=== PATIENT | female | born 1950 | race Caucasian/White ===

== ENCOUNTER 2019-09-10 05:53 | Outpatient (RCR) | payer MEDICARE, MEDICAID, SELFPAY | END 2019-10-07 00:01 | LOC: ONCMED 05:53 | PROVIDERS: Family Provider Physician Assistant; Visit Provider Internal Medicine Medical Oncology | DX: D45 Polycythemia vera (principal); R11.2 Nausea with vomiting, unspecified; R19.7 Diarrhea, unspecified; R51 Headache; J44.1 Chronic obstructive pulmonary disease with (acute) exacerbation; G47.33 Obstructive sleep apnea (adult) (pediatric); I11.0 Hypertensive heart disease with heart failure; E78.5 Hyperlipidemia, unspecified; E11.9 Type 2 diabetes mellitus without complications; M19.90 Unspecified osteoarthritis, unspecified site; F17.210 Nicotine dependence, cigarettes, uncomplicated | CPT/HCPCS: 87804 ×2; 96361; 96365; 99214; J7040 ==

== ENCOUNTER 2019-10-28 08:53 | Outpatient (CLI) | payer MEDICARE, MEDICAID, SELFPAY ==
--- NOTE | 2019-10-28 09:17 | CT_ITS ---
WS: [id number] CT ABDOMEN AND PELVIS NONCONTRAST HISTORY: RLQ PAIN TECHNIQUE: Imaging performed through the abdomen and pelvis. Coronal and sagittal reformats are submi tted. All CT scans at [facility] use at least one of these dose optimization techniques: automated exposure control; mA and/or kV adjustment per patient size (includes targeted exams where d ose is matched to clinical indication); or iterative reconstruction. DLP: 1072.98 mGycm COMPARISON: None available. Lower thorax: Subsegmental atelectasis at the lung bases. No mass or pneumonia. Heart size is normal. Moderate pericardial fat. Small hiatal hernia. Liver: Mild hepatic steatosis. No mass or bile duct dilatation. Gallbladder: Prior cholecystectomy. Pancreas: Normal. Spleen: Normal. Adrenal glands: Normal. Right kidney: Normal size with no stones, masses or atrophy. Left kidney: Normal size with no stones, mass or atrophy. Moderate atherosclerosis aorta. No aneurysm. No periaortic hematoma. No free fluid, intraperitoneal air or significant lymphadenopathy. GI tract: The appendix is normal. Mild tortuosity of the colon and fecal retention. No obstruction or soft tissue mass. There are a few scattered diverticula in the distal colon without acute diverticul itis. Abdominal wall: Intact. Pelvis: Prior hysterectomy. Minimally distended urinary bladder. No free fluid or adenopathy in the p yamile. Calcifications in the LEFT pelvis are dystrophic and benign in appearance and may be related t o prior surgery. No adjacent inflammation. Osseous structures: L5 anterolisthesis by 9.9 mm. Bilateral pars defects at L5. LEFT convex curvature lumbar spine. CT/CT abdomen pelvis wo con [id number] IMPRESSION: 1. No renal obstruction or appendicitis. 2. Prior cholecystectomy and hysterectomy. 3. Mild hepatic steatosis. 4. No RIGHT lower quadrant abnormality identified. 5. Moderate atherosclerosis abdominal aorta. 6. Grade 1 spondylolisthesis and spondylolysis L5.
== END 2019-10-28 08:54 | disposition home or self-care (01) ==
LOC: RADWPI 09:01
PROVIDERS: Family Provider Physician Assistant; PCP Physician Assistant; Visit Provider Physician Assistant
DX: I70.0 Atherosclerosis of aorta (principal); K76.0 Fatty (change of) liver, not elsewhere classified; R10.31 Right lower quadrant pain; M47.896 Other spondylosis, lumbar region; Z90.710 Acquired absence of both cervix and uterus
CPT/HCPCS: 74176

== ENCOUNTER 2020-03-30 11:23 | Outpatient (CLI) | payer MEDICARE, MEDICAID, SELFPAY ==
[2020-03-30 15:19] LABS: Alanine Aminotransferase 7 U/L (0-33); Albumin Level 3.8 g/dL (3.5-5.2); Alkaline Phosphatase 88 IU/L (35-105); Anion Gap 17.7 (5-19); Aspartate Amino Transferase 12 U/L (0-32); Blood Urea Nitrogen 20 mg/dL (8-23); Calcium 9.5 mg/dL (8.5-10.5); Carbon Dioxide 26 mmol/L (22-29); Chloride 99 mmol/L (98-107); Globulin 2.5 g/dL (1.3-4.6); Glomerular Filtration Rate 55.1 mL/min (90-130); Glucose 106 mg/dL (65-115); Lactate Dehydrogenase 190 U/L (135-214); Osmolality Calculated 285 mOsm/kg (285-295); Potassium 3.7 mmol/L (3.5-5.1); Sodium 139 mmol/L (136-145); Total Bilirubin 0.2 mg/dL (0.15-1.2); Total Protein 6.3 g/dL (6.6-8.7)
[2020-03-30 15:38] LABS: Basophils # 0.1 10^3/uL (0.0-0.1); Basophils % 0.7 %; Eosinophils # 0.1 10^3/uL (0.0-0.8); Hematocrit 44.1 % (37.0-47.0); Hemoglobin 13.6 g/dL (11.5-15.3); Lymphocytes # 3.1 10^3/uL (0.8-4.8); Lymphocytes % 31.9 %; Mean Corpuscular HGB Conc 30.8 g/dL (30.0-36.0); Mean Corpuscular Hemoglobin 26.8 pg (28.0-34.0); Mean Platelet Volume 10.5 fL (7.4-10.4); Monocytes # 0.6 10^3/uL (0.2-0.9); Monocytes % 6.3 %; Neutrophils # 5.7 10^3/uL (1.8-7.7); Neutrophils % 59.4 %; Nucleated Red Blood Cells % 0 %; Platelet Count 249 10^3/cmm (130-400); Red Blood Count 5.07 10^6/uL (4.1-5.3); Red Cell Distribution Width 16.8 % (12.1-15.1); White Blood Count 9.7 10^3/uL (4.0-10.0)
== END 2020-03-30 11:24 | disposition home or self-care (01) ==
PROVIDERS: PCP Physician Assistant; Visit Provider Internal Medicine Medical Oncology
DX: D45 Polycythemia vera (principal); E11.9 Type 2 diabetes mellitus without complications; E78.5 Hyperlipidemia, unspecified; G47.33 Obstructive sleep apnea (adult) (pediatric); I10 Essential (primary) hypertension; J44.9 Chronic obstructive pulmonary disease, unspecified; M81.0 Age-related osteoporosis without current pathological fracture
CPT/HCPCS: 36415; 80053; 83615; 85025

== ENCOUNTER 2020-03-31 13:54 | Outpatient (CLI) | payer MEDICARE, MEDICAID, SELFPAY ==
--- NOTE | 2020-04-01 11:24 | ONC FU_ITS ---
Dr. Capellan Patient Follow-Up Note Patient: Humaira Early Unit #: [id number]: 1950 Dicatated By: Star Capellan M.D.Date of Visit:Mar 31, 2020 Onc Med Follow-up/Prog Note Chief Complaint: Polycythemia. History of Present Illness: This is a 69 year-old woman with polycythemia rubra vera. She had been seen by Dr. Hamilton in October 2014 and her laboratory studies at that time showed significantly elevated hemoglobin/hematocrit levels at 17.0 g and 50.9% respectively. The white blood cell count was borderline high at 10,200. The platelet count was normal at 255,000. B12 level was normal at 741 pg/mL. 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 I had seen her initially in November 2014, and at that point I did have her start phlebotomies. In May 2017 I had her start hydroxyurea, as she was still requiring phlebotomy on a frequent basis. As of her followup visit on 04/17/2018 she appeared stable clinically and her blood counts were in normal range. She continued hydroxyurea at 500 mg bid. On 05/13/2018 she was admitted to the hospital with acute renal failure in association with COPD exacerbation/pneumonia. She improved with IV fluids, antibiotics, and steroid therapy. As a precaution, I did opt to stop her hydroxyurea. During subsequent follow-up, her renal function improved and her blood counts remained adequately controlled. She has multiple medical illnesses including hypertension, hyperlipidemia, type 2 diabetes, asthma/COPD, obstructive sleep apnea, and pretty severe arthritis in her knees. She does have a history of smoking a pack of cigarettes daily for 45 years. She has cut down. INTERIM HISTORY: She is seen for a followup visit. She has been feeling a little better generally, she has now been started on home oxygen, which she uses continuously. With that her breathing has been better, she has been sleeping better, and she has had significant improvement in her swelling. She still has limited activity, but she is able to walk around and do a few very light chores. ECOG score is 2. She has good appetite. She has no fever or night sweats. She still has a smoker's cough, and she is smoking 1/2 pack of cigarettes daily. She does not have chest pain. She has no GI or complaints. She has pain in her left knee, she also has pain in her right leg, from the ankle to the knee. She gets dizzy if she does not take meclizine. She has no focal neurologic symptoms. Medications: Biotene Dry Mouth Moisturizing Solution Mouth/throat PRN, Gabapentin 2 (400 mg) Tablet Oral t.i.d., Losartan Potassium 1 (50 mg) Tablet Oral daily, Lovastatin 1 (40 mg) Tablet Oral daily, Meclizine HCl 1 (25 mg) Tablet Oral t.i.d., metFORMIN HCl ER 1 Tablet (of 500 mg) Tablet SR 24 HR Oral b.i.d., Metoprolol Succinate ER 1 Tablet (of 100 mg) Tablet SR 24 HR Oral daily, Pioglitazone HCl 1 (15 mg) Tablet Oral daily, Trulicity 1 Subcutaneous q 7 days Allergies: contrast dye Review of Systems: Constitutional - She has limited activity, but she is able to walk around and do a few very light chores. Appetite is good and weight is stable. No fever, night sweats, or hot flashes. ECOG score is 2, ENMT - No sinus congestion/drainage. No mouth sores. No sore throat or difficulty swallowing, Hematologic/Lymphatic - No abnormal bruising or bleeding, Respiratory - She has shortness of breath. She is now on continuous oxygen. She has smoker's cough. No pleuritic pain or hemoptysis. She is still smoking 1/2 pack of cigarettes daily, Cardiovascular - No angina pain. No palpitations, Gastrointestinal - No nausea or vomiting. No heartburn or acid reflux. No diarrhea or constipation. No blood in the stool or black stools, Genitourinary (F) - No dysuria or hematuria. No urinary frequency. No urgency or incontinence, Musculoskeletal - She has pain in her left knee and she has pain in her right leg, from the ankle to the knee, Integumentary - No skin rash, Neurologic - No headache. She has dizziness if she doesn't take meclizine. No numbness or tingling. No other focal neurologic symptoms, Psychiatric - No anxiety or depression. She has been sleeping better with the oxygen. Vital Signs: Performed on Mar 31, 2020 14:11 Height - 64.00 in Weight - 280.4 lbs (HIGH) BSA - 2.26 sq.m BMI - 48.13 (HIGH) Temperature - 97.1 F (LOW) Pulse - 77 /min Respiration - 24 /min BP - 106/41 mm(hg) O2 Sat - 95 % (LOW) Pain - 0 Physical Examination: Constitutional - She appears generally weak and chronically ill, Eyes - Sclerae nonicteric. Conjunctivae clear, ENMT - Mouth is dry. There are no lesions noted in the oral cavity, Hematologic/Lymphatic - No cervical, clavicular, or axillary adenopathy, Respiratory - Lungs sound clear with diminished air movement bilaterally, Cardiovascular - Heart tones are distant. The rhythm is regular. There is no murmur, gallop, or rub noted, Abdomen - Distended. Liver and spleen are not enlarged. There is no abdominal mass or ascites noted and there is no inguinal adenopathy, Extremities - No edema, Neurologic - No focal neurologic deficits noted. Lab/Imaging: CBC shows hemoglobin 13.6 g with hematocrit 44.1%, white blood cell count 9700, and platelet count 249,000. Comprehensive metabolic profile shows stable renal function with BUN 20 and creatinine 1.0 mg/dL. Bilirubin and liver enzymes are normal. Impression: 1. Patient had presented with elevated hemoglobin/hematocrit levels. She had a low erythropoietin level and a positive JAK2 gene mutation study, consistent with polycythemia rubra vera. 2. She has underlying asthma/COPD and obstructive sleep apnea, and she also may have a component of secondary polycythemia. 3. Her blood count have come down with phlebotomies. Her other medical illnesses include: 4. Hypertension. 5. Hyperlipidemia. 6. Type II diabetes. 7. Degenerative arthritis. 8. She has nicotine dependence (cigarettes). Her blood counts initially had been adequately controlled with phlebotomy. However, her subsequent hemoglobin/hematocrit levels had remained consistently elevated despite having phlebotomies regularly. In May 2017 she started with hydroxyurea at 500 mg twice a day. Her blood counts had been well controlled on that dosage. In May 2018 she was admitted to the hospital with an episode of acute renal failure in association with COPD exacerbation/pneumonia. She recovered uneventfully, but I did opt to stop her hydroxyurea. Thus far during follow-up her blood counts have remained adequately controlled off hydroxyurea. She likely does have some component of secondary polycythemia, she has continued to smoke. Her clinical status, though, has improved significantly since she started on home oxygen. Plan: As long as her blood counts are adequately controlled, she will continue on observation/expectant management. I will see her again in 6 months, or sooner as needed. Signed By: Star Capellan M.D. <<Signature on File>>
== END 2020-03-31 13:55 | disposition home or self-care (01) ==
PROVIDERS: PCP Physician Assistant; Visit Provider Internal Medicine Medical Oncology
DX: D45 Polycythemia vera (principal); J44.9 Chronic obstructive pulmonary disease, unspecified; G47.33 Obstructive sleep apnea (adult) (pediatric); I10 Essential (primary) hypertension; E78.5 Hyperlipidemia, unspecified; E11.9 Type 2 diabetes mellitus without complications; M19.90 Unspecified osteoarthritis, unspecified site; F17.210 Nicotine dependence, cigarettes, uncomplicated; Z99.81 Dependence on supplemental oxygen
CPT/HCPCS: 99214

== ENCOUNTER 2020-04-16 10:54 | Outpatient (CLI) | payer MEDICARE, MEDICAID, SELFPAY ==
--- NOTE | 2020-04-16 14:11 | PFTS_ITS ---
Date of Study:04/16/20 Date of Dictation: MECHANICS: Forced vital capacity (FVC) is reduced. Forced expiratory volume in one second (FEV1) is reduced. FEV1/FVC is reduced. FLOW VOLUME LOOP: Reduced flow at all lung volumes with significant scooping. LUNG VOLUMES: Not measured DIFFUSING CAPACITY FOR CARBON MONOXIDE: Mildly reduced INTERPRETATION: The pulmonary function tests are consistent with severe obstruction. A component of restriction cannot be ruled out in the absence of lung volumes. There is significant postbronchodilator response. Lung volumes were not measured. Gas exchange (DLCO) is mildly reduced. MTDD
== END 2020-04-16 10:55 | disposition home or self-care (01) ==
LOC: RT 10:58
PROVIDERS: PCP Physician Assistant; Visit Provider Physician Assistant
DX: J44.9 Chronic obstructive pulmonary disease, unspecified (principal)
CPT/HCPCS: 94060; 94729; J7611

== ENCOUNTER → 2020-05-18 15:48 | Outpatient (BNVA) | payer MEDICARE, MEDICAID, SELFPAY | PROVIDERS: PCP Physician Assistant; Visit Provider Obstetrics & Gynecology | DX: N90.89 Other specified noninflammatory disorders of vulva and perineum (principal) | CPT/HCPCS: 88305 ==

== ENCOUNTER 2020-05-25 14:38 | Outpatient (CLI) | payer MEDICARE, MEDICAID, SELFPAY ==
--- NOTE | 2020-05-25 14:45 | MM_ITS ---
WS: [id number] BILATERAL SCREENING DIGITAL MAMMOGRAM WITH CAD HISTORY: SCREENING COMPARISON: 03/19/2018 Bilateral CC and MLO views submitted. Computer aided detection analyzed. Breast composition: There are scattered areas of fibroglandular density. No suspicious masses, microc alcifications or architectural distortion. Stable asymmetries and calcifications. MM/[place] [id number] IMPRESSION: BI-RADS: 2-Benign FOLLOW UP: 1 Year Follow-up
--- NOTE | 2020-05-25 15:50 | XR_ITS ---
WS: [id number] SCREENING DEXA SCAN [facility] CLINICAL INFORMATION: POSTMENOPAUSAL COMPARISON: FINDINGS: The L1-L4 bone mineral density measures 0.983 g/cm2. This corresponds to a T score score of -1.6 and Z score of -1.2. Left femoral neck bone mineral density measures 0.693 g/cm2. This corresponds to a T score of -2.5 an d Z score of -2.0. Right femoral neck bone mineral density measures 0.795 g/cm2. This corresponds to a T score -1.7of an d Z score of -1.1. Mean femoral neck bone mineral density measures 0.744 g/cm2. This corresponds to a T score of -2.1 an d Z score of -1.5. XR/XR DEXA axial skeleton* [id number] IMPRESSION: Osteopenia lumbar spine. Osteoporosis femoral necks. Patient's FRAX calculated 10 year probability for major osteoporotic fracture i s 27.5 % and osteoporotic hip fracture is 12.7%.
== END 2020-05-25 14:39 | disposition home or self-care (01) ==
LOC: RADSHAW 14:44
PROVIDERS: PCP Physician Assistant; Visit Provider Physician Assistant
DX: Z12.31 Encounter for screening mammogram for malignant neoplasm of breast (principal); Z78.0 Asymptomatic menopausal state; M81.0 Age-related osteoporosis without current pathological fracture
CPT/HCPCS: 77067; 77080

== ENCOUNTER 2020-07-20 10:37 | Outpatient (CLI) | payer MEDICARE, MEDICAID, SELFPAY ==
--- NOTE | 2020-07-20 10:48 | CT_ITS ---
WS: [id number] CT CHEST WITH INTRAVENOUS CONTRAST HISTORY: LUNG NODULE/VULVA CANCER TECHNIQUE: Contiguous 5 mm axial imaging performed on the thorax. Coronal and sagittal reformats are submitted. All CT scans at [facility] use at least one of these dose optimization techniq ues: automated exposure control; mA and/or kV adjustment per patient size (includes targeted exams wh ere dose is matched to clinical indication); or iterative reconstruction. CONTRAST: Visipaque 320; 95 mL IV. DLP: 944.61 mGy.cm COMPARISON: 03/19/2018 Lungs and central airway: Hyperexpanded lungs with changes of emphysema. No pneumonia. Normal vascula ture. No pulmonary nodules. Pleura: Normal. No pleural effusion. Heart and pericardium: Normal size heart. Dense calcification along the mitral annular valve plane. M oderate coronary artery atherosclerosis. No pericardial effusion. Mediastinum and gertrude: Small stable mediastinal and hilar lymph nodes. No adenopathy. Vessels: Mild atherosclerosis aorta. Normal size pulmonary artery. Chest wall and lower neck: No soft tissue masses. Upper abdomen: Prior cholecystectomy. Mild thickening of the RIGHT adrenal gland up to 9 mm is simila r to the prior study with no progression. Visualized liver and spleen are normal. Osseous structures: Healed rib fracture in the anterolateral RIGHT thorax. CT/CT chest w con* [id number] IMPRESSION: 1. Chronic emphysema. No pulmonary nodules or pneumonia. 2. Moderate coronary artery atherosclerosis and mild thoracic aorta atheroscle rosis. 3. Prior cholecystectomy. 4. Stable RIGHT adrenal nodule. 5. No change in the mediastinal and hilar lymph nodes.
[2020-07-20 11:31] LABS: Blood Urea Nitrogen 13 mg/dL (8-23); Glomerular Filtration Rate 71.3 mL/min (90-130)
[2020-07-20] MEDS: iodixanol 320 mg/mL 100mL Btl IV (12:05)
== END 2020-07-20 10:38 | disposition home or self-care (01) ==
LOC: RAD 10:40
PROVIDERS: PCP Physician Assistant; Visit Provider Nurse Practitioner Family
DX: C51.9 Malignant neoplasm of vulva, unspecified (principal); R91.1 Solitary pulmonary nodule; J43.9 Emphysema, unspecified; I25.10 Atherosclerotic heart disease of native coronary artery without angina pectoris; I70.0 Atherosclerosis of aorta; D49.7 Neoplasm of unspecified behavior of endocrine glands and other parts of nervous system
CPT/HCPCS: 36415; 71260; 82565; 84520

== ENCOUNTER 2020-09-08 14:59 | Outpatient (CLI) | payer MEDICARE, MEDICAID, SELFPAY ==
[2020-09-07 09:59] VITALS: BP 120/78; PULSE 96; RESP 18; TEMP 36.7; O2SAT 93
[2020-09-07 10:35] LABS: Calcium 9.6 mg/dL (8.5-10.5); Glomerular Filtration Rate 55.1 mL/min (90-130)
--- NOTE | 2020-09-08 07:18 | SUR.PREOP ---
creatinine clearance is >35 108 per online calculator. calcium within normal limits. patient verified candidate for reclast.
[2020-09-08 15:47] VITALS: BP 102/84; PULSE 75; RESP 18; TEMP 36.1; O2SAT 98; BMI 51.2
== END 2020-09-08 15:00 | disposition home or self-care (01) ==
PROVIDERS: PCP Physician Assistant; Visit Provider Physician Assistant
DX: M81.0 Age-related osteoporosis without current pathological fracture (principal)
CPT/HCPCS: 36415; 82310; 82565; 96365; J3489

== ENCOUNTER 2020-09-13 07:50 | Outpatient (CLI) | payer MEDICARE, MEDICAID, SELFPAY ==
[2020-09-13 08:54] LABS: Basophils # 0.1 10^3/uL (0.0-0.1); Basophils % 0.6 %; Eosinophils # 0.2 10^3/uL (0.0-0.8); Eosinophils % 1.8 %; Hematocrit 43.9 % (37.0-47.0); Hemoglobin 13.6 g/dL (11.5-15.3); Lymphocytes # 2.9 10^3/uL (0.8-4.8); Lymphocytes % 32.5 %; Mean Corpuscular Hemoglobin 27.8 pg (28.0-34.0); Mean Corpuscular Volume 89.6 fL (81-99); Mean Platelet Volume 10.2 fL (7.4-10.4); Monocytes # 0.6 10^3/uL (0.2-0.9); Monocytes % 6.8 %; Neutrophils # 5.17 10^3/uL (1.8-7.7); Neutrophils % 57.7 %; Nucleated Red Blood Cells % 0 %; Platelet Count 262 10^3/cmm (130-400)
[2020-09-13 09:19] LABS: Alanine Aminotransferase 9 U/L (0-33); Albumin Level 3.5 g/dL (3.5-5.2); Alkaline Phosphatase 122 IU/L (35-105); Aspartate Amino Transferase 8 U/L (0-32); Blood Urea Nitrogen 18 mg/dL (8-23); Calcium 8.8 mg/dL (8.5-10.5); Carbon Dioxide 26 mmol/L (22-29); Chloride 103 mmol/L (98-107); Globulin 2.9 g/dL (1.3-4.6); Glomerular Filtration Rate 62.3 mL/min (90-130); Glucose 137 mg/dL (65-115); Lactate Dehydrogenase 148 U/L (135-214); Osmolality Calculated 290 mOsm/kg (285-295); Sodium 138 mmol/L (136-145); Total Bilirubin 0.2 mg/dL (0.15-1.2); Total Protein 6.4 g/dL (6.6-8.7)
== END 2020-09-13 07:51 | disposition home or self-care (01) ==
LOC: ONCMED 15:31
PROVIDERS: PCP Physician Assistant; Visit Provider Internal Medicine Medical Oncology
DX: D45 Polycythemia vera (principal)
CPT/HCPCS: 80053; 83615; 85025

== ENCOUNTER 2020-09-14 08:18 | Outpatient (CLI) | payer MEDICARE, MEDICAID, SELFPAY ==
--- NOTE | 2020-09-17 15:08 | ONC FU_ITS ---
Dr. Capellan Patient Follow-Up Note Patient: Humaira Early Unit #: [id number]: 1950 Dicatated By: Star Capellan M.D.Date of Visit:Sep 14, 2020 Telehealth Progress Note The patient has been informed that the visit may not be secure and acknowledged the information. I have explained the option of participating in a telephone or video visit during the [facility] to the patient. After being given an opportunity to ask questions about and discuss this type of visit, the patient verbally consented to proceeding with the telephone/video visit. the patient understands that this service replaces an office visit and they may be billed and /or responsible for any applicable copayments Chief Complaint: Polycythemia. History of Present Illness: This is a 69 year-old woman with polycythemia rubra vera. She had been seen by Dr. Hamilton in October 2014 and her laboratory studies at that time showed significantly elevated hemoglobin/hematocrit levels at 17.0 g and 50.9% respectively. The white blood cell count was borderline high at 10,200. The platelet count was normal at 255,000. B12 level was normal at 741 pg/mL. 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 I had seen her initially in November 2014, and at that point I did have her start phlebotomies. In May 2017 I had her start hydroxyurea, as she was still requiring phlebotomy on a frequent basis. As of her followup visit on 04/17/2018 she appeared stable clinically and her blood counts were in normal range. She continued hydroxyurea at 500 mg bid. On 05/13/2018 she was admitted to the hospital with acute renal failure in association with COPD exacerbation/pneumonia. She improved with IV fluids, antibiotics, and steroid therapy. As a precaution, I did opt to stop her hydroxyurea. During subsequent follow-up, her renal function improved and her blood counts remained adequately controlled. She has multiple medical illnesses including hypertension, hyperlipidemia, type 2 diabetes, asthma/COPD, obstructive sleep apnea, and pretty severe arthritis in her knees. She does have a history of smoking a pack of cigarettes daily for 45 years. She has cut down. INTERIM HISTORY: She is seen for a followup visit by Telehealth. She still has very limited activity, but she is up and around at home. ECOG score is 2. She has good appetite. She has not had fever. She says she has always had sweating at night. In August she had a skin cancer removed from her thigh. She has shortness of breath, and she is on continuous oxygen. She has just occasional cough. She does not complain of chest pain. She has no GI/ complaints other than occasional acid reflux. She does have a lot of joint pain, especially the knees and the left shoulder and arm. She occasionally has headache. She takes meclizine for dizziness. She has no focal neurologic symptoms. Medications: Biotene Dry Mouth Moisturizing Solution Mouth/throat PRN, Gabapentin 2 (400 mg) Tablet Oral t.i.d., Losartan Potassium 1 (50 mg) Tablet Oral daily, Lovastatin 1 (40 mg) Tablet Oral daily, Meclizine HCl 1 (25 mg) Tablet Oral t.i.d., metFORMIN HCl ER 1 Tablet (of 500 mg) Tablet SR 24 HR Oral b.i.d., Metoprolol Succinate ER 1 Tablet (of 100 mg) Tablet SR 24 HR Oral daily, Pioglitazone HCl 1 (15 mg) Tablet Oral daily, Trulicity 1 Subcutaneous q 7 days Allergies: contrast dye Review of Systems: Constitutional - She has very limited activity, but she has up and around at home. Her appetite is good. She has not had fever. She has sweating at night, but that she has always had. ECOG score is 2, ENMT - No sinus congestion/drainage. No mouth sores. No sore throat or difficulty swallowing, Hematologic/Lymphatic - She has easy bruising, Respiratory - She has shortness of breath. She is on continuous oxygen. She has just occasional cough. No pleuritic pain or hemoptysis, Cardiovascular - No angina pain. No palpitations, Gastrointestinal - No nausea or vomiting. She has occasional acid reflux. No diarrhea or constipation. No blood in the stool or black stools, Genitourinary (F) - No dysuria or hematuria. No urinary frequency. No urgency or incontinence, Musculoskeletal - She has a lot of joint pain, particularly in the knees and in the left shoulder and arm, Integumentary - In August she had a skin cancer removed from her thigh, Neurologic - She occasionally has headache. She takes meclizine for dizziness. No numbness or tingling. No other focal neurologic symptoms, Psychiatric - No anxiety or depression. She does not sleep well at night. Physical Examination: Constitutional - She appears generally weak, but not acutely ill. Lab/Imaging: CBC shows hemoglobin 13.6 g with hematocrit 43.9%. The white blood cell count is 9000 and the platelet count is 262,000. Comprehensive metabolic profile is unremarkable except for slightly elevated alkaline phosphatase at 122/105 IU/L. Impression: 1. Patient had presented with elevated hemoglobin/hematocrit levels. She had a low erythropoietin level and a positive JAK2 gene mutation study, consistent with polycythemia rubra vera. 2. She has underlying asthma/COPD and obstructive sleep apnea, and she also may have a component of secondary polycythemia. 3. Her blood count have come down with phlebotomies. Her other medical illnesses include: 4. Hypertension. 5. Hyperlipidemia. 6. Type II diabetes. 7. Degenerative arthritis. 8. She has nicotine dependence (cigarettes). Her blood counts initially had been adequately controlled with phlebotomy. However, her subsequent hemoglobin/hematocrit levels had remained consistently elevated despite having phlebotomies regularly. In May 2017 she started with hydroxyurea at 500 mg twice a day. Her blood counts had been well controlled on that dosage. In May 2018 she was admitted to the hospital with an episode of acute renal failure in association with COPD exacerbation/pneumonia. She recovered uneventfully, but I did opt to stop her hydroxyurea. Thus far during follow-up her blood counts have remained adequately controlled off hydroxyurea. Her hematocrit is slightly above target range, but I feel that it is acceptable as she likely does have some component of secondary polycythemia, and she has continued to smoke. Overall, her clinical status appears stable. Plan: She continues observation/expectant management. Her blood count will be rechecked in 3 months. I will see her again in 6 months. Signed By: Star Capellan M.D. <<Signature on File>>
== END 2020-09-14 08:19 | disposition home or self-care (01) ==
LOC: ONCMED 08:19
PROVIDERS: PCP Physician Assistant; Visit Provider Internal Medicine Medical Oncology
DX: D45 Polycythemia vera (principal); J44.9 Chronic obstructive pulmonary disease, unspecified; G47.33 Obstructive sleep apnea (adult) (pediatric); I10 Essential (primary) hypertension; E78.5 Hyperlipidemia, unspecified; E11.9 Type 2 diabetes mellitus without complications; M19.90 Unspecified osteoarthritis, unspecified site; F17.210 Nicotine dependence, cigarettes, uncomplicated

== ENCOUNTER 2020-09-21 12:16 | Emergency (ER) | payer MEDICARE, MEDICAID, SELFPAY ==
[2020-09-21 12:30] VITALS: PULSE 88; RESP 18; TEMP 35.9; O2SAT 98; BMI 49.6
--- NOTE | 2020-09-21 12:52 | W.ED.GENADLT ---
HPI - General Adult General: Chief complaint: General Medical Stated complaint: phy ref/poss clots in legs Time Seen by Provider: 09/21/20 12:45 History of Present Illness: HPI narrative: 61-year-old female presents emergency room with complaint of swelling and discomfort bilateral in her lower extremities and redness she says it has been there for the last 5 months. She said the redness is moving up more proximally up her leg she is not had any fever sweats or chills she is chronically on oxygen a 4 lpm by [place]. She denies any chest pain or shortness of breath no nausea vomiting or diarrhea. Interestingly in the room on room air her oxygen saturations were 96-97% Onset (ago): month(s) (4) Location: lower extremity Radiation: non-radiation Severity: moderate Quality: burning Pain Consistency: intermittent Relieving factors: none Associated symptoms: Deny chest pain, confusion, cough, diaphoresis, decreased appetite, dyspnea, fevers/chills, headache(s), malaise, nausea, rash, palpitations, seizures, short of breath, syncope, vomiting or weakness Treatments prior to arrival: none Review of Systems Const: Denies: malaise or diaphoresis ENMT: Denies: throat pain, ear or mastoid pain, nasal discharge or nasal congestion Card: Denies: chest pain, palpitations or syncope Resp: Denies: dyspnea GI: Denies: nausea or vomiting : Denies: flank pain, difficulty voiding, dysuria, urinary frequency or urinary urgency Skin/Breast: Denies: rash Neuro: Denies: headache(s) or confusion [facility] ED PFSH: Medical History (Updated 09/21/20 @ 14:14 by Eduard Martinez DO) Chronic hypertension Diagnosed in 2009 and she is on medication managed by primary care provider. Does not have a counter supply worker. COPD (chronic obstructive pulmonary disease) Asthma/COPD diagnosed in 1999 and is on medication. Managed by PMD. Is scheduled to see senior chemical process engineer Dr. Gaines. Diabetes mellitus Diagnosed in 1999 and controlled on medication managed by PMD. Does not have an autocutter. Does not know what her last hemoglobin A1c is. Hypercholesteremia Diagnosed in 2009 and controlled with medication. No pertinent past medical history Patient denies history of PE/DVT/clotting disorders, liver heart, thyroid. PCP: [facility] Overactive bladder On Vesicare managed by primary care provider. Squamous cell carcinoma of vulva Diagnosed in 2019 with a rapidly growing lesion on left crural fold. Patient underwent radical partial vulvectomy with inguinofemoral sentinel lymphadenectomy on 07/06/[address] Brian moran in [facility]. Surgical History (Updated 07/27/20 @ 09:23 by Enoc Diaz MD) Status post arthroscopic knee surgery 1999---left knee Status post cholecystectomy 2004-laparoscopic procedure Status post hysterectomy 2004-total abdominal hysterectomy with bilateral salpingo-oophorectomy for abnormal uterine bleeding. Open procedure via vertical midline infraumbilical incision. ----> Per patient benign pathology. Status post surgery 07/06/2020---radical partial vulvectomy with inguinofemoral sentinel lymphadenectomy performed by Dr. Brian moran in [facility] for squamous cell carcinoma of the vulva. Pathology showed well-differentiated squamous cell carcinoma. Lymph nodes were negative for malignant neoplasm. Family History Mother Diabetes Hyperlipidemia Hypertension Stroke Grandfather Diabetes maternal Brother Diabetes Sister Breast cancer Diagnosed in her 50s, Lung cancer Denies family history of Colon cancer Ovarian cancer Heart disease Uterine cancer Thyroid condition Social History Smoking and tobacco status: current every day smoker cigarettes Packs smoked per day: 0.5 Years cigarettes smoked: 50 Quit status (tobacco): considering quitting Second hand smoke exposure: No Alcohol intake: never Lives independently: Yes Household members: spouse Marital status: Current occupational status: disabled History of recent travel: No Current gender identity: Female Physical Exam Const: COMMON NORMALS: no acute distress GENERAL APPEARANCE: cooperative and comfortable ORIENTATION/CONSCIOUSNESS: Yes awake, Yes oriented to person, Yes oriented to place and Yes oriented to time HENMT: COMMON NORMALS: normocephalic, atraumatic and hearing grossly normal bilaterally HEAD & SCALP: normocephalic and atraumatic Neck/C-Spine: COMMON NORMALS: no JVD Resp: COMMON NORMALS: normal respiratory effort, No retractions, No use of accessory muscles and clear to auscultation bilaterally AUSCULTATION: clear to auscultation bilaterally Cardio: COMMON NORMALS: no JVD, regular rate, regular rhythm and No murmurs present (Cardio) RATE: regular rate RHYTHM: regular rhythm GI: COMMON NORMALS: Soft to palpation and No hepatosplenomegaly present AUSCULTATION: Yes normoactive bowel sounds PALPATION: Yes Soft to palpation, No Tenderness to palpation present (GI), No Guarding due to palpation present (GI) and Yes No hepatosplenomegaly present Extremity: COMMON NORMALS: normal to inspection, capillary refill normal, no clubbing, cyanosis or edema, no calf tenderness and no pedal edema Neuro: SENSORIUM/ORIENTATION: Yes oriented to person, Yes oriented to place and Yes oriented to time Skin: NARRATIVE SKIN EXAM: Mild induration of the feet no evidence of fissures. Some induration. Course Vital Signs: Vital signs: Vital Signs Temperature 96.7 F L 09/21/20 12:30 Pulse Rate 67 09/21/20 14:24 Respiratory Rate 18 09/21/20 14:24 Blood Pressure 142/53 09/21/20 14:24 Pulse Oximetry 97 09/21/20 14:24 MDM - General Adult MDM Narrative: Medical decision making narrative: Her duplex is negative there is no real sign of infection or cellulitis in the feet today. She does have a mild dermatitis seems to work its way proximally just proximal to the ankles bilaterally. Patient reports it arrington slightly and has some pruritus to it. We will go and have her use triamcinolone 3 times daily, started on itraconazole 200 twice daily for a week and get her set up to see dermatology. Return if has further problems. Lab Data: Labs: Lab Results 09/21/20 09/21/20 Range/Units 13:00 13:00 WBC 9.2 (4.0-10.0) 10^3/ uL RBC 5.18 (4.1-5.3) 10^6/u L Hgb 14.3 (11.5-15.3) g/dL Hct 45.9 (37.0-47.0) % MCV 88.6 (81-99) fL MCH 27.6 L (28.0-34.0) pg MCHC 31.2 (30.0-36.0) g/dL RDW 13.9 (12.1-15.1) % Plt Count 254 (130-400) 10^3/c mm MPV 10.0 (7.4-10.4) fL Neut % (Auto) 59.4 % Lymph % (Auto) 31.1 % [facility] % (Auto) 7.3 % Eos % (Auto) 1.4 % Baso % (Auto) 0.5 % Neut # (Auto) 5.46 (1.8-7.7) 10^3/u L Lymph # (Auto) 2.9 (0.8-4.8) 10^3/u L [facility] # (Auto) 0.7 (0.2-0.9) 10^3/u L Eos # (Auto) 0.1 (0.0-0.8) 10^3/u L Baso # (Auto) 0.1 (0.0-0.1) 10^3/u L Nucleated RBC % (a uto) 0 % Nucleated RBCs # 0.0 /100WBC Sodium 135 L (136-145) mmol/L Potassium 4.0 (3.5-5.1) mmol/L Chloride 99 (98-107) mmol/L Carbon Dioxide 29 (22-29) mmol/L Anion Gap 11.0 (5-19) BUN 13 (8-23) mg/dL Creatinine 0.9 (0.5-0.9) mg/dL GFR Calculation 62.3 L (90-130) mL/min Glucose 100 (65-115) mg/dL Calculated Osmolal ity 280 L (285-295) mOsm/k g Calcium 9.9 (8.5-10.5) mg/dL Total Bilirubin 0.2 (0.15-1.2) mg/dL AST 12 (0-32) U/L ALT 9 (0-33) U/L Alkaline Phosphata se 131 H (35-105) IU/L Total Protein 7.0 (6.6-8.7) g/dL Albumin 3.7 (3.5-5.2) g/dL Globulin 3.3 (1.3-4.6) g/dL Discharge Plan Discharge Patient Disposition: Home Clinical Impression: Chronic dermatitis of feet, Tinea pedis Condition: Stable Prescriptions: New triamcinolone acetonide 0.1 % ointment 1 applic topical TID Qty: 453.6 RF: 0 itraconazole 100 mg capsule 200 mg PO BID 7 Days Qty: 28 RF: 0 Held lovastatin 40 mg tablet 40 mg PO DAILY@0800 RF: 0 Hold Instructions: Resume on 09/29/20. hold while on itraconozole No Action solifenacin [Vesicare] 10 mg tablet 10 mg PO DAILY@0800 RF: 0 meclizine 25 mg tablet 25 mg PO TID@,, RF: 0 albuterol sulfate [ProAir HFA] 90 mcg/actuation HFA aerosol inhaler 2 puff INHALATION Q6H PRN (Reason: short of breath) RF: 0 pioglitazone 15 mg tablet 15 mg PO DAILY@0800 RF: 0 losartan 100 mg tablet 100 mg PO DAILY@0800 RF: 0 furosemide [Lasix] 40 mg tablet 40 mg PO DAILY@0800 RF: 0 Trulicity 0.75 mg/0.5 mL pen injector 0.75 mg SUBCUT Q7D RF: 0 metformin 500 mg tablet extended release 24 hr 1,000 mg PO DAILY@0800 RF: 0 gabapentin 400 mg capsule 400 mg PO TID@,, RF: 0 metoprolol tartrate 50 mg tablet 50 mg PO DAILY@0800 RF: 0 ipratropium-albuterol 0.5 mg-3 mg(2.5 mg base)/3 mL solution for nebulization 3 ml INHALATION Q6H RF: 0 zoledronic amvo-kwoewsxs-cyyfz [Reclast] 5 mg/100 mL piggyback 5 ea IVP .yearly RF: 0 pantoprazole 40 mg tablet,delayed release (DR/EC) 40 mg PO DAILY@0800 RF: 0 Trelegy Ellipta 100-62.5-25 mcg blister with device 1 inh INHALATION DAILY@0800 RF: 0 Eye Vitamin and Minerals 7,160-113-100 [id number] Tablet 1 tab PO DAILY@0800 RF: 0 Vitamin D3 1 tab PO DAILY@0800 RF: 0 Discharge Orders: Discharge ED (Routine); Ordered 09/21/20 Ordered By: Eduard Martinez Referrals: Tierney Kearney PA [Primary Care Provider] - Coding Level of Care Code ED Chief Nursing Officer for Chg Fwd Exam Detailed
--- NOTE | 2020-09-21 12:57 | USCV_ITS ---
Humaira Early Age: 69 Gender: F : 1950 Exam Date: 09/21/2020 13:13 Ordering Phys: Eduard Martinez DO Technologist: Dionne Bahena Exam Location: [facility] [place] Indication: Bilateral leg pain and swelling HISTORY: Lower extremity pain. PROCEDURES: Venous duplex imaging was performed in bilateral lower extremities. The following venous structures were evaluated: common femoral vein, profunda vein, proximal portion of the greater saphenous vein, superficial femoral vein, and the popliteal vein. In addition, the posterior tibial and peroneal trunk were evaluated. FINDINGS: Normal 2-D Doppler and augmentation and compressibility throughout the lower extremity venous structures. Additional imaging through the proximal calf veins also reveals no thrombus. Limited evaluation of the greater saphenous vein is patent with no thrombus. CONCLUSIONS No evidence of right lower extremity DVT. No evidence of left lower extremity DVT. Marquez Seay MD (Electronically Signed) Final Date: 21 September 2020 17:16 S
[2020-09-21 13:08] LABS: Basophils # 0.1 10^3/uL (0.0-0.1); Basophils % 0.5 %; Eosinophils # 0.1 10^3/uL (0.0-0.8); Eosinophils % 1.4 %; Hematocrit 45.9 % (37.0-47.0); Hemoglobin 14.3 g/dL (11.5-15.3); Lymphocytes # 2.9 10^3/uL (0.8-4.8); Lymphocytes % 31.1 %; Mean Corpuscular HGB Conc 31.2 g/dL (30.0-36.0); Mean Corpuscular Hemoglobin 27.6 pg (28.0-34.0); Mean Corpuscular Volume 88.6 fL (81-99); Monocytes # 0.7 10^3/uL (0.2-0.9); Monocytes % 7.3 %; Neutrophils # 5.46 10^3/uL (1.8-7.7); Neutrophils % 59.4 %; Nucleated Red Blood Cells % 0 %; Platelet Count 254 10^3/cmm (130-400); Red Blood Count 5.18 10^6/uL (4.1-5.3); Red Cell Distribution Width 13.9 % (12.1-15.1); White Blood Count 9.2 10^3/uL (4.0-10.0)
[2020-09-21 13:31] LABS: Alanine Aminotransferase 9 U/L (0-33); Albumin Level 3.7 g/dL (3.5-5.2); Alkaline Phosphatase 131 IU/L (35-105); Aspartate Amino Transferase 12 U/L (0-32); Blood Urea Nitrogen 13 mg/dL (8-23); Calcium 9.9 mg/dL (8.5-10.5); Carbon Dioxide 29 mmol/L (22-29); Chloride 99 mmol/L (98-107); Globulin 3.3 g/dL (1.3-4.6); Glomerular Filtration Rate 62.3 mL/min (90-130); Glucose 100 mg/dL (65-115); Osmolality Calculated 280 mOsm/kg (285-295); Sodium 135 mmol/L (136-145); Total Bilirubin 0.2 mg/dL (0.15-1.2)
[2020-09-21 13:57] VITALS: BP 145/73; PULSE 65; RESP 18; O2SAT 99
[2020-09-21 14:24] VITALS: BP 142/53; PULSE 67; RESP 18; O2SAT 97
--- NOTE | 2020-09-23 09:31 | DCPLANNER ---
horse farm manager had message to schedule a follow up appointment for patient with dermatology. horse farm manager called the dermatology office, spoke with Adis, a follow up appointment was scheduled for Monday, December 16, 2019 at 12:[address] Urbano. horse farm manager called patient with appointment information.
--- NOTE | 2020-12-29 07:56 | DCPLANNER ---
Patient had a follow up appointment scheduled with dermatology - appointment was rescheduled to a later date.
== END 2020-09-21 14:25 | disposition home or self-care (01) ==
PROVIDERS: Emergency Provider Family Medicine; PCP Physician Assistant
DX: L30.8 Other specified dermatitis (principal); B35.3 Tinea pedis; J44.9 Chronic obstructive pulmonary disease, unspecified; E11.9 Type 2 diabetes mellitus without complications; I10 Essential (primary) hypertension; F17.210 Nicotine dependence, cigarettes, uncomplicated
CPT/HCPCS: 12345; 80053; 85025; 93970; 99282; 99283

== ENCOUNTER 2020-12-08 13:19 | Outpatient (CLI) | payer MEDICARE, MEDICAID, SELFPAY ==
--- NOTE | 2020-12-08 13:50 | USCV_ITS ---
Humaira Early Age: 70 Gender: F : 1950 Exam Date: 12/08/2020 14:12 Ordering Phys: Anurag Bey MD Technologist: Silvana Almeida Exam Location[place] [facility] [place] Indication: lv function,phtn BP: / HR: 79 Rhythm: Sinus Technical Quality: Adequate MEASUREMENTS (Male / Female) Normal Values 2D ECHO LV Diastolic Diameter PLAX 4.3 cm 4.2 - 5.9 / 3.9 - 5.3 cm LV Systolic Diameter PLAX 3.1 cm LV Chamber Size 2.3 cm IVS Diastolic Thickness 1.5 cm 0.6 - 1.0 / 0.6 - 0.9 cm IVS Systolic Thickness 1.7 cm LVPW Diastolic Thickness 1.6 cm 0.6 - 1.0 / 0.6 - 0.9 cm LVPW Systolic Thickness 1.7 cm RV Chamber Size 3.8 cm LVOT Diameter 2.0 cm LV Ejection Fraction 2D Teich 54.7 % LV Ejection Fraction MOD 2C 43.2 % LV Ejection Fraction 2C AL 42.0 % LA Diameter 3.4 cm LA Width 2.5 cm LA Height 4.9 cm RA Width 3.3 cm RA Height 3.9 cm Aorta at Sinotubular Diameter 2.5 cm M-MODE LV Diastolic Diameter MM 5.2 cm 4.2 - 5.9 / 3.9 - 5.3 cm LV Systolic Diameter MM 3.2 cm LV Ejection Fraction MM Teich 67.1 % IVS Diastolic Thickness MM 1.0 cm 0.6 - 1.0 / 0.6 - 0.9 cm IVS Systolic Thickness MM 1.1 cm LVPW Diastolic Thickness MM 1.1 cm 0.6 - 1.0 / 0.6 - 0.9 cm LVPW Systolic Thickness MM 1.5 cm Aortic Annulus Diameter 3.4 cm LA Ao Ratio MM 1.2 MV E Point Septal Separation 0.5 cm DOPPLER AV Peak Velocity 130.7 cm/s LVOT Peak Velocity 103.0 cm/s AV Area Cont Eq vti 2.9 cm squared AV Area Cont Eq pk 2.6 cm squared MV Area PHT 2.9 cm squared Mitral E to A Ratio 0.8 MV E' Velocity 72.5 cm/s Mitral E to MV E' Ratio 12.1 Mitral E to LV E' Lateral Ratio 11.8 Mitral E to LV E' Septal Ratio 12.6 TR Peak Velocity 300.5 cm/s TR Peak Gradient 36.1 mmHg TV Peak E Velocity 81.0 cm/s Right Atrial Pressure 3.0 mmHg Pulmonary Artery Systolic Pressu 39.1 mmHg PV Peak Velocity 112.0 cm/s RV Acceleration Time 0.2 s RV Ejection Time 0.4 s RV AcT/ET 0.5 FINDINGS Left Ventricle Normal left ventricular size, systolic function and mildly increased wall thickness, with no diagnostic regional wall motion abnormalities. Left ventricular ejection fraction is estimated at 55 %. Normal diastolic function. Right Ventricle Normal right ventricular size and systolic function. Right Atrium Normal right atrial size. Left Atrium Normal left atrial size. Mitral Valve Thickened mitral valve. No mitral valve stenosis. Trace mitral valve regurgitation. Aortic Valve Structurally normal trileaflet aortic valve. No aortic valve stenosis. No aortic valve regurgitation. Tricuspid Valve Tricuspid valve not well visualized. Trace tricuspid valve regurgitation. Pulmonic Valve Pulmonic valve not well visualized. Pericardium No pericardial effusion. Aorta Normal sized aortic root . CONCLUSIONS 1. Normal left ventricular size, systolic function and mildly increased wall thickness, with no diagnostic regional wall motion abnormalities. Left ventricular ejection fraction is estimated at 55 %. Normal diastolic function. 2. No significant valvular abnormality. 3. No significant change when compared to previous study daed 06/15/2016. Andie Lux MD (Electronically Signed) Final Date: 12 December 2020 23:13 S
== END 2020-12-08 13:20 | disposition home or self-care (01) ==
LOC: US 13:19
PROVIDERS: PCP Physician Assistant; Visit Provider Internal Medicine Pulmonary Disease
DX: I10 Essential (primary) hypertension (principal)
CPT/HCPCS: 93306

== ENCOUNTER 2020-12-14 16:30 | Outpatient (CLI) | payer MEDICARE, MEDICAID, SELFPAY ==
[2020-12-14 17:10] LABS: Basophils # 0.1 10^3/uL (0.0-0.1); Basophils % 0.7 %; Eosinophils # 0.2 10^3/uL (0.0-0.8); Eosinophils % 1.9 %; Hematocrit 42.3 % (37.0-47.0); Hemoglobin 13.1 g/dL (11.5-15.3); Lymphocytes # 2.9 10^3/uL (0.8-4.8); Lymphocytes % 31.2 %; Mean Corpuscular Hemoglobin 27.1 pg (28.0-34.0); Mean Corpuscular Volume 87.6 fL (81-99); Mean Platelet Volume 10.4 fL (7.4-10.4); Monocytes # 0.6 10^3/uL (0.2-0.9); Neutrophils # 5.36 10^3/uL (1.8-7.7); Neutrophils % 58.5 %; Nucleated Red Blood Cells % 0 %; Platelet Count 283 10^3/cmm (130-400); Red Blood Count 4.83 10^6/uL (4.1-5.3); Red Cell Distribution Width 14.6 % (12.1-15.1); White Blood Count 9.1 10^3/uL (4.0-10.0)
== END 2020-12-14 16:31 | disposition home or self-care (01) ==
LOC: ONCMED 12-15 09:25
PROVIDERS: PCP Physician Assistant; Visit Provider Internal Medicine Medical Oncology
DX: D45 Polycythemia vera (principal)
CPT/HCPCS: 85025

== ENCOUNTER 2021-05-30 06:17 | Outpatient (CLI) | payer MEDICARE, MEDICAID, SELFPAY ==
--- NOTE | 2021-06-01 05:53 | ONC FU_ITS ---
Dr. Capellan Patient Follow-Up Note Patient: Humaira Early Unit #: [id number]: 1950 Dicatated By: Star Capellan M.D.Date of Visit:May 30, 2021 Telehealth Progress Note The patient has been informed that the visit may not be secure and acknowledged the information. I have explained the option of participating in a telephone or video visit during the [facility] emergency to the patient. After being given an opportunity to ask questions about and discuss this type of visit, the patient verbally consented to proceeding with the telephone/video visit. the patient understands that this service replaces an office visit and they may be billed and /or responsible for any applicable copayments Chief Complaint: Polycythemia. 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 She had been seen by Dr. Hamilton in October 2014 and her laboratory studies at that time showed significantly elevated hemoglobin/hematocrit levels at 17.0 g and 50.9% respectively. The white blood cell count was borderline high at 10,200. The platelet count was normal at 255,000. B12 level was normal at 741 pg/mL. Her subsequent evaluation included a low erythropoietin level at 3 MIU/mL and a JAK2 gene mutation study which was positive for the V617F mutation at 1.7%. I had seen her initially in November 2014, and at that point I did have her start phlebotomies. In May 2017 I had her start hydroxyurea, as she was still requiring phlebotomy on a frequent basis. As of her followup visit on 04/17/2018 she appeared stable clinically and her blood counts were in normal range. She continued hydroxyurea at 500 mg bid. On 05/13/2018 she was admitted to the hospital with acute renal failure in association with COPD exacerbation/pneumonia. She improved with IV fluids, antibiotics, and steroid therapy. As a precaution, I did opt to stop her hydroxyurea. During subsequent follow-up, her renal function improved and her blood counts then remained adequately controlled without the hydroxyurea. As such, she has continued expectant management for the polycythemia. She has multiple medical illnesses including hypertension, hyperlipidemia, type 2 diabetes, asthma/COPD, obstructive sleep apnea, and pretty severe arthritis in her knees. She does have a history of smoking a pack of cigarettes daily for 45 years. She has cut down. INTERIM HISTORY: She is seen for a followup visit by Telehealth. She has been feeling pretty good generally, though she continues to have limited activity. Her ECOG score is 2. She has good appetite. She has no fever, night sweats, or itching. She has not had sore mouth or throat. She has a cigarette cough. She has shortness of breath, and she is using pulmonary nebulizers on a regular basis. She does not complain of chest pain. She has no GI complaints other than occasional heartburn. She has urinary frequency and nocturia. She has pain in her knees, which is chronic. She does not complain of headache. She sometimes has dizziness, but it is managed adequately with meclizine. She has no numbness/paresthesia or other focal neurologic symptoms. She does report having easy bruising. Medications: Biotene Dry Mouth Moisturizing Solution Mouth/throat PRN, Gabapentin 2 (400 mg) Tablet Oral t.i.d., Losartan Potassium 1 (50 mg) Tablet Oral daily, Lovastatin 1 (40 mg) Tablet Oral daily, Meclizine HCl 1 (25 mg) Tablet Oral t.i.d., metFORMIN HCl ER 1 Tablet (of 500 mg) Tablet SR 24 HR Oral b.i.d., Metoprolol Succinate ER 1 Tablet (of 100 mg) Tablet SR 24 HR Oral daily, Pantoprazole Sodium 1 Tablet (of 40 mg) Tablet, enteric coated Oral daily, Pioglitazone HCl 1 (15 mg) Tablet Oral daily, Trulicity 1 Subcutaneous q 7 days Allergies: contrast dye Lab/Imaging: Test performed on Apr 08, 2021 02:16 Glucose 123.0 mg/dL LDH, Total 98 IU/L BUN 18.0 mg/dL Creatinine 0.9 mg/dL Cr Clearance (Est) 118.45 mL/min Sodium 137.0 mmol/L Potassium 4.0 mmol/L Chloride 102.0 mmol/L CO2 29.0 mmol/L Calcium 9.6 mg/dL Protein, Total 6.8 g/dL Albumin 3.7 g/dL Globulin 3.1 g/dL Bilirubin, Total 0.4 mg/dL Alkaline Phosphatase 100.0 IU/L AST (SGOT) 22.0 IU/L ALT (SGPT) 12.0 IU/L WBC 10.2 10^9/L RBC 4.94 10^12/L HGB 14.7 g/dL HCT 43.4 % MCV 87.9 fl MCH 29.7 pg MCHC 33.8 g/dL RDW 15.0 % Platelet Count 246.6 10^9/L Neutrophils (Gran) 6.2 10^9/L Lymphocytes 3.0 10^9/L Monocytes 0.8 10^9/L Manual Lymphocytes 29.4 % Manual Monocytes 7.7 % Impression: 1. Polycythemia rubra vera, JAK2 gene mutation positive, intially diagnosed in November 2014. 2. She has underlying asthma/COPD and obstructive sleep apnea, and she also may have a component of secondary polycythemia. 3. Hypertension. 4. Hyperlipidemia. 5. Type II diabetes. 6. Degenerative arthritis. 7. She has nicotine dependence (cigarettes). Plan: Patient had presented with elevated hemoglobin/hematocrit levels. She had a low erythropoietin level and a positive JAK2 gene mutation study, consistent with polycythemia rubra vera. Her blood counts initially had been adequately controlled with phlebotomy. As of May 2017 she had started with hydroxyurea at 500 mg twice a day. Her blood counts had been well controlled on that dosage. In May 2018 she was admitted to the hospital with an episode of acute renal failure in association with COPD exacerbation/pneumonia. She recovered uneventfully, but I did opt to stop her hydroxyurea. During subsequent follow-up her blood counts have remained adequately controlled off the hydroxyurea. Her hematocrit has been slightly above target range, which I have deemed to be acceptable as she likely does have some component of secondary polycythemia, and she has continued to smoke. As of April 2021 her hemoglobin/hematocrit levels remained just slightly above target range. Her overall clinical status appears stable. As such, I will continue to follow her on expectant management. For now I will continue to monitor her blood counts at 6-month intervals. Signed By: Star Capellan M.D. <<Signature on File>>
== END 2021-05-30 06:18 | disposition home or self-care (01) ==
LOC: ONCMED 06:19
PROVIDERS: PCP Physician Assistant; Visit Provider Internal Medicine Medical Oncology
DX: D45 Polycythemia vera (principal); J44.9 Chronic obstructive pulmonary disease, unspecified; Z79.899 Other long term (current) drug therapy; I10 Essential (primary) hypertension; E11.9 Type 2 diabetes mellitus without complications; F17.210 Nicotine dependence, cigarettes, uncomplicated
CPT/HCPCS: 99214

== ENCOUNTER 2022-05-31 13:58 | Outpatient (CLI) | payer MEDICARE, MEDICAID, SELFPAY ==
--- NOTE | 2022-05-31 14:02 | XR_ITS ---
WS: [id number] DEXA (DUAL ENERGY X-RAY ABSORPTIOMETRY) Bone mineral density was performed using a [employer] machine. HISTORY: OSTEOPOROSIS COMPARISON: 05/25/2020 Lumbar spine BMD (L1-L4): 0.985 g/cm2 T score: -1.6 Z score: -1.1 Total hip BMD: Left: 0.674 g/cm2. T score: -2.6 Z score: -2.0 Right: 0.749 g/cm2. T score: -2.1 Z score: -1.4 10 year probability of a major osteoporotic fracture is 25%. Compared to the prior study from 05/25/2020. Lumbar spine bone mineral density has increased by 0.2%. Bilateral hips bone mineral density has decreased by 4.3%. XR/XR DEXA axial skeleton* 13639 IMPRESSION: OSTEOPENIA based upon the WHO classification for females. Significant decrease in bone mineral density within the hips since the prior .
== END 2022-05-31 13:59 | disposition home or self-care (01) ==
LOC: RAD 13:59
PROVIDERS: PCP Physician Assistant; Visit Provider Physician Assistant
DX: M81.0 Age-related osteoporosis without current pathological fracture (principal); M85.80 Other specified disorders of bone density and structure, unspecified site
CPT/HCPCS: 77080

== ENCOUNTER → 2022-07-03 13:33 | Outpatient (BNVA) | payer MEDICARE, MEDICAID, SELFPAY | PROVIDERS: PCP Physician Assistant; Visit Provider Internal Medicine Pulmonary Disease | DX: R06.02 Shortness of breath (principal); J43.2 Centrilobular emphysema; G47.33 Obstructive sleep apnea (adult) (pediatric); Z99.89 Dependence on other enabling machines and devices; F17.210 Nicotine dependence, cigarettes, uncomplicated; I27.20 Pulmonary hypertension, unspecified | CPT/HCPCS: 99214 ==

== ENCOUNTER 2022-07-03 14:53 | Outpatient (CLI) | payer MEDICARE, MEDICAID, SELFPAY ==
[2022-07-03 15:44] LABS: Calcium 9.5 mg/dL (8.5-10.5)
== END 2022-07-03 14:54 | disposition home or self-care (01) ==
LOC: LAB 14:56
PROVIDERS: PCP Physician Assistant; Visit Provider Physician Assistant
DX: M81.0 Age-related osteoporosis without current pathological fracture (principal)
CPT/HCPCS: 82310

== ENCOUNTER 2022-10-10 12:54 | Outpatient (CLI) | payer MEDICARE, MEDICAID, SELFPAY | END 2022-10-10 12:55 | disposition home or self-care (01) | PROVIDERS: PCP Physician Assistant; Visit Provider Internal Medicine Pulmonary Disease | DX: J44.9 Chronic obstructive pulmonary disease, unspecified (principal); R06.02 Shortness of breath | CPT/HCPCS: 94060; 94618; 94729; J7613 ==

== ENCOUNTER 2022-10-18 12:56 | Outpatient (CLI) | payer MEDICARE, MEDICAID, SELFPAY ==
--- NOTE | 2022-10-18 13:15 | CT_ITS ---
WS: [id number] LDCT LUNG CANCER SCREENING TECHNIQUE: Noncontrast CT of the chest with coronal and sagittal reformatted images. CLINICAL INFORMATION: lung screening COMPARISON: CT chest July 20, 2020 DLP: 75.81 mGy.cm DIvol: Mean CTDIvol: 1.60 (mGy) All CT scans at [facility] use at least one of these dose optimization techniques: automat ed exposure control; mA and/or kV adjustment per patient size (includes targeted exams where dose is matched to clinical indication); or iterative reconstruction. FINDINGS: Some images degraded by breathing motion artifact. Subsegmental atelectasis in the lingula. No suspicious pulmonary parenchymal opacities.Cholecystectom y clips. No acute pulmonary infiltrates. No pleural fluid. Aortic calcification. Normal caliber thora cic aorta. Coronary calcification. No mediastinal or hilar lymphadenopathy. Small adrenal nodules lik feng adenomas. Small esophageal hiatal hernia. Fatty atrophy of the pancreas. CT/CT lung screening [id number] IMPRESSION: LUNG-RADS: 1-Negative FOLLOW UP: 12 Month: Continue annual screening with LDCT
== END 2022-10-18 12:57 | disposition home or self-care (01) ==
LOC: RAD 12:58
PROVIDERS: PCP Physician Assistant; Visit Provider Internal Medicine Pulmonary Disease
DX: Z12.2 Encounter for screening for malignant neoplasm of respiratory organs (principal); F17.210 Nicotine dependence, cigarettes, uncomplicated
CPT/HCPCS: 71271

== ENCOUNTER → 2023-09-20 13:47 | Outpatient (BNVA) | payer MEDICARE, MEDICAID, SELFPAY | PROVIDERS: PCP Physician Assistant; Visit Provider Internal Medicine Pulmonary Disease | DX: R06.02 Shortness of breath (principal); F17.210 Nicotine dependence, cigarettes, uncomplicated; J43.2 Centrilobular emphysema; G47.33 Obstructive sleep apnea (adult) (pediatric); Z99.89 Dependence on other enabling machines and devices | CPT/HCPCS: 99214 ==

== ENCOUNTER 2023-11-14 14:31 | Outpatient (CLI) | payer MEDICARE, MEDICAID, SELFPAY ==
--- NOTE | 2023-11-14 14:30 | CT_ITS ---
WS: [id number] LDCT LUNG CANCER SCREENING TECHNIQUE: Noncontrast CT of the chest with coronal and sagittal reformatted images. CLINICAL INFORMATION: Cancer Screen COMPARISON: 10/18/2022 DLP: 215.41 mGy.cm DIvol: Mean CTDIvol: 5.60 (mGy) All CT scans at [facility] use at least one of these dose optimization techniques: automat ed exposure control; mA and/or kV adjustment per patient size (includes targeted exams where dose is matched to clinical indication); or iterative reconstruction. FINDINGS: Mild chronic emphysematous changes. Subsegmental atelectasis in the lingula unchanged. 6 mm subpleura l fibrotic opacity RIGHT upper lobe posteriorly unchanged. No new suspicious pulmonary parenchymal op acities. No mediastinal or hilar lymphadenopathy. Cholecystectomy clips. Mild thoracic kyphosis. Mild thoracic curve. Aortic calcification. Normal darlyn antonia thoracic aorta. Coronary calcification. Small adrenal nodules likely adenomas. Small esophageal h iatal hernia. Fatty atrophy of the pancreas. IMPRESSION: CT/CT lung screening [id number] LUNG-RADS: 2-Benign Appearance or Behavior FOLLOW UP: 12 Month: Continue annual screening with LDCT
== END 2023-11-14 14:32 | disposition home or self-care (01) ==
LOC: RAD 14:32
PROVIDERS: PCP Physician Assistant; Visit Provider Internal Medicine Pulmonary Disease
DX: Z12.2 Encounter for screening for malignant neoplasm of respiratory organs (principal); F17.210 Nicotine dependence, cigarettes, uncomplicated; J43.9 Emphysema, unspecified; J98.11 Atelectasis; R91.8 Other nonspecific abnormal finding of lung field
CPT/HCPCS: 71271

== ENCOUNTER 2024-09-24 12:32 | Outpatient (CLI) | payer MEDICARE, MEDICAID, SELFPAY ==
--- NOTE | 2024-09-24 12:41 | CTR_ITS ---
PROCEDURE INFORMATION: Exam: CT Neck Without Contrast Exam date and time: 09/24/2024 12:53 PM Age: 73 years old Clinical indication: Mass, lump, or swelling in neck; Right; Patient HX: Swelling to RT side of neck below RT ear-bb; Additional info: Localized swelling, mass and lump, neck TECHNIQUE: Imaging protocol: Computed tomography of the neck without contrast. Radiation optimization: All CT scans at this facility use at least one of these dose optimization techniques: automated exposure control; mA and/or kV adjustment per patient size (includes targeted exams where dose is matched to clinical indication); or iterative reconstruction. COMPARISON: US soft tissue head neck [id number] 07/02/2024 11:17 AM RADIATION DOSE METRICS: Total DLP (mGy-cm): 277.85 FINDINGS: Brain: No acute findings in the included intracranial compartment. Mastoid air cells: Chronic opacification of the bilateral mastoid air cells, nonspecific. Salivary glands: 3 cm x 1.8 cm x 2 cm solid and cystic mass in the right parotid gland (at the area of concern). The mass is very well circumscribed and without aggressive features. Pharynx: Unremarkable. No significant tonsillar enlargement. Prevertebral and retropharyngeal spaces: Unremarkable. Larynx: Unremarkable. Epiglottis is normal. Thyroid: Slightly heterogeneous thyroid gland which may be followed up with ultrasound in a nonemergent setting. Trachea: Visualized trachea is unremarkable. Lungs: Emphysematous changes in the lung apices without acute findings. Lymph nodes: Unremarkable. No lymphadenopathy. Vasculature: There is mild atherosclerotic calcification of the carotid arteries. Bones/joints: Mild multilevel degenerative changes of the spine. No acutely displaced fractures. Soft tissues: Unremarkable. No significant soft tissue swelling. CT/CT neck wo con [id number] IMPRESSION: 3 cm x 1.8 cm x 2 cm solid and cystic mass in the right parotid gland (at the area of concern). The mass is very well circumscribed and without aggressive features. Differential diagnosis would include: Neoplasm (Warthin's tumor versus pleomorphic adenoma are usually the most common) versus enlarged lymph node (less likely).
== END 2024-09-24 12:33 | disposition home or self-care (01) ==
LOC: RAD 12:36
PROVIDERS: PCP Physician Assistant; Visit Provider Specialist
DX: D37.030 Neoplasm of uncertain behavior of the parotid salivary glands (principal)
CPT/HCPCS: 70490